=== PATIENT | female | born 1950 | race Caucasian/White ===

== ENCOUNTER 2018-04-11 11:34 | Day surgery (SDC) | payer MEDICARE, OTHER ==
--- NOTE | 2018-04-02 09:55 | RADIOLOGY REPORT (SQ) ---
EXAM DESCRIPTION: CHEST PA/LATERAL COMPLETED DATE/TIME: 04/02/2018 9:10 am REASON FOR STUDY: PRE-OP COMPARISON: 11/04/2012. EXAM PARAMETERS: NUMBER OF VIEWS: two views TECHNIQUE: Digital Frontal and Lateral radiographic views of the chest acquired. RADIATION DOSE: NA LIMITATIONS: none FINDINGS: LUNGS AND PLEURA: No opacities, masses or pneumothorax. No pleural effusion. MEDIASTINUM AND HILAR STRUCTURES: No masses or contour abnormalities. HEART AND VASCULAR STRUCTURES: Heart normal size. No evidence for failure. BONES: No acute findings. HARDWARE: None in the chest. OTHER: No other significant finding. IMPRESSION: NO SIGNIFICANT RADIOGRAPHIC FINDING IN THE CHEST. TECHNICAL DOCUMENTATION: JOB ID: [id number] [employer]- All Rights Reserved Reading location - IP/workstation name: [email or web address]
[2018-04-02 11:02] LABS: HEMOGLOBIN 13.9 g/dL (12.0-15.5); MEAN CORPUSCULAR HEMOGLOBIN 30.9 pg (27.0-33.4); MEAN CORPUSCULAR HGB CONC 34.7 g/dL (32.0-36.0); MEAN CORPUSCULAR VOLUME 89 fl (80-97); PLATELET COUNT 277 10^3/uL (150-450); RED BLOOD COUNT 4.49 10^6/uL (3.72-5.28); RED CELL DISTRIBUTION WIDTH 13.8 % (11.5-14.0); WHITE BLOOD COUNT 7.9 10^3/uL (4.0-10.5)
[2018-04-02 11:13] LABS: ANION GAP 12 (5-19); BLOOD UREA NITROGEN 15 mg/dL (7-20); CALCIUM 9.8 mg/dL (8.4-10.2); CARBON DIOXIDE 29 mmol/L (22-30); CHLORIDE 101 mmol/L (98-107); GLUCOSE 110 mg/dL (75-110); POTASSIUM 4.4 mmol/L (3.6-5.0)
--- NOTE | 2018-04-02 21:58 | EKG REPORT ---
SEVERITY:- NORMAL ECG - SINUS RHYTHM : Confirmed by: Saeed Jenkins 02-Apr-2018 21:58:13
[~2018-04-11 11:34] MED LIST: LACTATED RINGERS 1000 ML IV PRN; LIDOCAINE 0.5% INJ-PF (5 MG/ML) 50 ML SDV SUBCUT PRN; METRONIDAZOLE 500 MG/NS RTU 500 MG/100 ML RTUPB IV PRN
[2018-04-11] MEDS ORDERED: DEXAMETHASONE SOD PHOSPHATE INJ 4 MG/1 ML VIAL ONE (12:49)
[2018-04-11] MEDS ORDERED: MIDAZOLAM 2 MG/2 ML INJ ONE (12:49)
[2018-04-11] MEDS ORDERED: ONDANSETRON HCL INJ/PF 4 MG/2 ML SDV ONE (12:49)
[2018-04-11] MEDS ORDERED: LIDOCAINE 2% INJ-PF (20 MG/ML) 10 ML AMPUL ONE (12:49)
[2018-04-11] MEDS ORDERED: FENTANYL CITRATE INJ/PF 100 MCG/2 ML AMPUL ONE (12:49)
[2018-04-11] MEDS ORDERED: PROPOFOL INJ 200 MG/20 ML VIAL IV ONE (12:50)
[2018-04-11] MEDS ORDERED: ACETAMINOPHEN 1,000 MG/100 ML RTUPB IV ONE (12:50)
[2018-04-11] MEDS ORDERED: BUPIVACAINE INJ/PF LIPOSOME/PF 266 MG/20 ML SDV ONE (15:21)
[2018-04-11] MEDS ORDERED: LIDOCAINE 2% JELLY 30 ML TUBE ONE (15:21)
[2018-04-11] MEDS ORDERED: BACITRACIN INJ 50,000 UNIT VIAL ONE (15:21)
[2018-04-11] MEDS ORDERED: FENTANYL CITRATE INJ/PF 100 MCG/2 ML AMPUL IV PRN ×3 (15:27)
[2018-04-11] MEDS ORDERED: MEPERIDINE HCL/PF INJ 25 MG/1 ML DISP.SYRIN IV PRN (15:27)
[2018-04-11] MEDS ORDERED: DIPHENHYDRAMINE HCL 50 MG/ML VIAL IV PRN (15:27)
[2018-04-11] MEDS ORDERED: MORPHINE SULFATE 10 MG/ML INJ IV PRN (15:27)
[2018-04-11] MEDS ORDERED: ONDANSETRON HCL INJ/PF 4 MG/2 ML SDV IV PRN (15:27)
[2018-04-11] MEDS ORDERED: PROMETHAZINE HCL INJ 25 MG/1 ML VIAL IV PRN ×2 (15:27)
[2018-04-11] MEDS: FENTANYL CITRATE INJ/PF 100 MCG/2 ML AMPUL ONE ×3 (16:51→17:01)
[2018-04-11] MEDS ORDERED: HYDROCODONE/ACETAMINOPHEN 10-325 MG TABLET ONE (17:49)
[2018-04-11 18:58] VITALS: BP 128/50
--- NOTE | 2018-04-12 10:09 | Discharge Summary ---
Discharge Summary (SDC) - Discharge Final Diagnosis: Grade 4 internal hemorrhoids, thrombosed external hemorrhoids. Date of Surgery: 04/11/18 Discharge Date: 04/11/18 Condition: Stable Forms: ASU Anesthesia D/C Instruction, Discharge POC-Surgical Service Referrals: JET COBB MD [Primary Care Provider] - JAYCE GOSS MD [ACTIVE STAFF] - (call for appointment in week to 10 days) Discharge Diet: As Tolerated Respiratory Treatments at Home: Deep Breathing/Coughing, Incentive Spirometer Discharge Activity: Slowly Increase Activity Home Care Assistance: Provided by Family Report the Following to Your Physician Immediately: Shortness of Breath, Nausea , Vomiting, Increase in Pain, Fever over 101 Degrees, Unusual Bleeding, Redness , Swelling, Warmth, Increased Soreness, Drainage-Yellow, Large Clots, IV Site Infection Signs
--- NOTE | 2018-04-12 10:19 | Operative Report ---
Nonrecallable Operative Report DATE OF SURGERY: 04/11/18 PREOPERATIVE DIAGNOSIS: 1. Grade 4 internal hemorrhoids. 2. Thrombosed external hemorrhoids. POSTOPERATIVE DIAGNOSIS: Same as above OPERATION: 1. 2-column surgical hemorrhoidectomy (right anterior and right posterior columns). 2. Rubber band ligation of left lateral internal hemorrhoids 2 SURGEON: JAYCE GOSS ANESTHESIA: GA TISSUE REMOVED OR ALTERED: Right anterior and right posterior hemorrhoid columns (internal and external) COMPLICATIONS: None apparent ESTIMATED BLOOD LOSS: Minimal PROCEDURE: Drains/implants: None. Procedure in detail: After informed consent was obtained, the patient was brought into the operating room and laid in the lithotomy position. The area of the rectum was prepped and draped in a normal sterile fashion. An anal block was created with Exparel. A Hill-Beaver retractor was inserted into the rectum. There were enlarged hemorrhoids in all 3 columns (right anterior, right posterior, and left lateral). The largest were in the right anterior and right posterior columns. Surgical excision was chosen for the right anterior right posterior columns. The right posterior hemorrhoid was elevated and Bovie electrocautery was used to divide the hemorrhoid from the internal to the external border. Once the hemorrhoid was removed, it was passed off the field and sent to pathology. Next, the defect was closed using 3-0 chromic suture. Great care was taken to reapproximate mucosa to mucosa, anoderm to anoderm, and skin to skin. Once this was completed, attention was turned to the right anterior hemorrhoid. In similar fashion, it was elevated and divided using Bovie electrocautery. The resultant defect was again closed with 3-0 chromic suture. Once this was complete, the left lateral hemorrhoid was inspected. There was enlargement of the internal hemorrhoids, but to a lesser degree. It was felt that rubber band ligation could adequately address her left lateral column. The hemorrhoid banding device was used to isolate and ligate 2 separate areas in the left lateral column. The anus was then inspected. All hemorrhoids had been adequately treated at this time. A dressing was placed, and the procedure was concluded. All sponge, instrument, and needle counts were correct 2. Condition: Stable.
== END 2018-04-11 19:10 | disposition home or self-care (01) ==
LOC: OROUT 11:34
PROVIDERS: ATTEND Surgery
DX: K64.5 Perianal venous thrombosis (principal); K64.3 Fourth degree hemorrhoids; M19.90 Unspecified osteoarthritis, unspecified site; I10 Essential (primary) hypertension; E78.00 Pure hypercholesterolemia, unspecified; K58.9 Irritable bowel syndrome, unspecified; Z86.010 Personal history of colon polyps; Z79.01 Long term (current) use of anticoagulants; Z87.891 Personal history of nicotine dependence; Z79.899 Other long term (current) drug therapy; Z88.5 Allergy status to narcotic agent
CPT/HCPCS: 93005; 36415 ×2; 84132; 85027; 80048; 88304 ×2; 71046; 93010; 46260; J2250; J1100; J3010; J2405; J2704; J3490; J0131; C9290; A9270; 902

== ENCOUNTER → 2020-03-03 | Outpatient (CLI) | payer MEDICARE, OTHER ==
--- NOTE | 2020-03-03 17:12 | RADIOLOGY REPORT (SQ) ---
EXAM DESCRIPTION: CT LUNG CANCER SCREENING IMAGES COMPLETED DATE/TIME: 03/03/2020 1:19 pm REASON FOR STUDY: F17.218 NICOTINE DEPENDENCE, CIGARETTES, W OTH DISORDERS F17.218 NICOTINE DEPENDE NCE, CIGARETTES, W OTH DISORDERS Has the patient had a Chest CT scan within the past year? N Was the patient offered tobacco cessation counseling? Y Was the patient engaged in shared decision making for this test? Y Does the patient have signs or symptoms of Lung Cancer? N Is the patient a smoker? Y How many pack years? 40 How many years since quitting smoking? 0 Patients age: 69 COMPARISON: None. TECHNIQUE: Low Dose CT scan performed of the chest without intravenous contrast for purposes of scre ening for lung cancer. Images reviewed with lung, soft tissue and bone windows. Reconstructed coron al and sagittal MPR images reviewed. All images stored on PACS. All CT scanners at this facility use dose modulation, iterative reconstruction, and/or weight based d osing when appropriate to reduce radiation dose to as low as reasonably achievable (ALARA). [facility]: Dose Right [facility]: CareDose [facility]: Dose Right [facility]: Teradose 4D [facility]: [employer] RADIATION DOSE: CT Rad equipment meets quality standard of care and radiation dose reduction techniq ues were employed. CTDIvol: 2.1 mGy. DLP: 82 mGy-cm. mGy. . LIMITATIONS: None FINDINGS: LUNGS AND PLEURA: No masses or nodules. No pleural effusions or calcifications. No pne umothorax. No scarring or interstitial changes. Incidental note is made of a small lingular air cy st. HILAR AND MEDIASTINAL STRUCTURES: No identified masses. No abnormal nodes. HEART AND VASCULAR STRUCTURES: No aortic aneurysm. No pericardial effusion. No cardiac devices. CORONARY ARTERY CALCIFICATIONS: No significant calcifications. UPPER ABDOMEN, THYROID, BONES, OTHER SOFT TISSUES: No significant findings. IMPRESSION: NO SIGNIFICANT FINDING IN THE LUNGS ON NON-CONTRASTED CHEST CT. NO OTHER CLINICALLY SIGNIFICANT/POTENTIALLY CLINICALLY SIGNIFICANT FINDINGS LUNGRADS: LUNGRADS: 1 NEGATIVE. NO NODULES, OR DEFINITELY BENIGN NODULES MODIFIER: NONE RECOMMENDATION: Continue annual screening with LDCT in 12 months. COMMENT: CRITERIA: No lung nodules. Nodules with specific calcifications: Complete, central, popcorn, concentric rings and fat containin g nodules. TECHNICAL DOCUMENTATION: JOB ID: [id number] Quality ID # [id number]: Final reports with documentation of one or more dose reduction techniques (e.g., Au tomated exposure control, adjustment of the mA and/or kV according to patient size, use of iterative reconstruction technique) 2010 [facility] Radiology Reading location - IP/workstation name: [email or web address]
== END ==
LOC: RAD 13:04
PROVIDERS: ATTEND Internal Medicine
DX: Z12.2 Encounter for screening for malignant neoplasm of respiratory organs (principal); F17.218 Nicotine dependence, cigarettes, with other nicotine-induced disorders
CPT/HCPCS: G0297